=== PATIENT | male | born 1970 | race Caucasian/White ===

== ENCOUNTER 2016-12-20 16:31 | Outpatient (CLI) | payer BC ==
--- NOTE | 2016-12-20 17:50 | DIAGNOSTIC IMAGING REPORT ---
PROCEDURE: CT IVP CLINICAL INDICATION: HEMATURIA TECHNIQUE: Preliminary AP and lateral heel stiffener views of the abdomen were obtained. Subsequently, noncontrast axial images were obtained of the entire abdomen and pelvis. 145 ml of Isovue 300 was injected intravenously, and axial images were obtained of the abdomen and pelvis with biphasic imaging of the liver and kidneys, followed by sagittal and coronal reformations. Postinjection AP heel stiffener view of the abdomen was also obtained. COMPARISON: Compared CT abdomen and pelvis studies on 04/09/2016 and 12/20/2015. FINDINGS: NONCONTRAST ABDOMEN: No evidence of urinary tract calculus. CONTRAST ABDOMEN: Kidneys and ureters are normal. No evidence of mass or hydronephrosis. Adrenal glands appear normal. Gallbladder is contracted (with moderate ingested material in the stomach). Mildly heterogeneous appearance of the liver compatible fatty infiltration or intrinsic liver disease. Spleen, pancreas, aorta, are normal. Large left posterior lateral chronic disc herniation/osteophyte at L4-5 with marked narrowing of the left lateral recess. NONCONTRAST PELVIS: No evidence of urinary tract calculus. CONTRAST PELVIS: Pelvic structures are normal. Prostate is of normal size (3.2 cm). Urinary bladder is normal (as visualized). IMPRESSION: 1. Normal kidneys and urinary tract. 2. Heterogeneous appearance of the liver compatible fatty infiltration or intrinsic liver disease. 3. Large left posterior lateral chronic disc herniation L4-5 (no change). All CT scans at this facility use dose modulation, iterative reconstruction, and/or weight-based dosing when appropriate to reduce radiation dose to as low as reasonably achievable.
--- NOTE | 2016-12-20 17:50 | DIAGNOSTIC IMAGING REPORT ---
PROCEDURE: CT IVP CLINICAL INDICATION: HEMATURIA TECHNIQUE: Preliminary AP and lateral machine records units supervisor views of the abdomen were obtained. Subsequently, noncontrast axial images were obtained of the entire abdomen and pelvis. 145 ml of Isovue 300 was injected intravenously, and axial images were obtained of the abdomen and pelvis with biphasic imaging of the liver and kidneys, followed by sagittal and coronal reformations. Postinjection AP machine records units supervisor view of the abdomen was also obtained. COMPARISON: Compared CT abdomen and pelvis studies on 04/09/2016 and 12/20/2015. FINDINGS: NONCONTRAST ABDOMEN: No evidence of urinary tract calculus. CONTRAST ABDOMEN: Kidneys and ureters are normal. No evidence of mass or hydronephrosis. Adrenal glands appear normal. Gallbladder is contracted (with moderate ingested material in the stomach). Mildly heterogeneous appearance of the liver compatible fatty infiltration or intrinsic liver disease. Spleen, pancreas, aorta, are normal. Large left posterior lateral chronic disc herniation/osteophyte at L4-5 with marked narrowing of the left lateral recess. NONCONTRAST PELVIS: No evidence of urinary tract calculus. CONTRAST PELVIS: Pelvic structures are normal. Prostate is of normal size (3.2 cm). Urinary bladder is normal (as visualized). IMPRESSION: 1. Normal kidneys and urinary tract. 2. Heterogeneous appearance of the liver compatible fatty infiltration or intrinsic liver disease. 3. Large left posterior lateral chronic disc herniation L4-5 (no change). All CT scans at this facility use dose modulation, iterative reconstruction, and/or weight-based dosing when appropriate to reduce radiation dose to as low as reasonably achievable.
== END 2016-12-20 23:00 | disposition home or self-care (01) ==
LOC: CT SRH 16:31
DX: R31.9 Hematuria, unspecified (principal)